=== PATIENT | male | born 1960 | race African-American/Black ===

== ENCOUNTER 2021-02-06 11:47 | Emergency (ER) | payer OTHER, SELFPAY ==
--- NOTE | ~2021-02-06 | XR_ITS ---
XR ankle LT min 3V DATE: 02/06/2021 12:20 INDICATION: Left ankle pain. Twisted ankle one week ago. TECHNIQUE: 4 views COMPARISON: None FINDINGS: There is lateral soft tissue swelling. No fracture or dislocation of the left ankle or disruption of the ankle mortise is detected. There is a small chronic accessory ossicle at the tip of the lateral malleolus. Mild plantar calcaneal enthesopathy without associated erosive change or periostitis. IMPRESSION: Lateral soft tissue swelling; no recent fracture or dislocation Plantar calcaneal enthesopathy Reviewed, dictated and finalized at location A.
[2021-02-06 11:58] VITALS: BP 112/80; PULSE 72; RESP 18; TEMP 36.6; O2SAT 100
--- NOTE | 2021-02-06 13:14 | ED.LOWEXIN ---
HPI - Extremity Injury (Lower) General Chief Complaint: Extremity Injury, Lower Stated Complaint: Left Ankle Pain Time Seen by Provider: 02/06/21 13:00 Source: patient and RN notes reviewed Mode of arrival: ambulatory Limitations: no limitations History of Present Illness HPI Narrative: 60-year-old male presents concern with left ankle pain for 1 week. Reports 1 week ago he rolled his ankle causing swelling, bruising, pain. Reports he has been walking on it but has been painful. Reports he has been using Tylenol, ice, ankle brace with little relief. He denies warmth, redness, open skin. Denies decreased sensation, strength in the joint. MD complaint: ankle injury Review of Systems Review of Systems: CONSTITUTIONAL: Denies malaise, chills, sweats, or fever. SKIN: Denies redness, warmth, open skin MUSCULOSKELETAL: Reports left ankle pain, bruising, and swelling NEUROLOGIC: Denies numbness, weakness All systems reviewed & are unremarkable except as noted in HPI and below PMFSH Comments At time of signature, agree with nursing past medical, surgical, social and family history. There is no relevant family history pertinent to the presenting complaint Exam Narrative: GENERAL: Well-appearing, well-nourished, and in no acute distress. HEAD: Normocephalic, atraumatic. EYES: PERRLA, conjunctivae clear NECK: Supple. CHEST: Speaks in full sentences. No respiratory distress. HEART: Regular rate and rhythm. Normal and equal peripheral pulses. EXTREMITIES: Left ankle, foot, digits have normal strength and sensation. Moderate edema, mild ecchymosis. 5/5 strength with digit flexion and extension. Normal sensation with sensitivity to light touch and pain. Lateral ankle tenderness. No open wounds, no skin tenting, no devitalized tissue or atrophy, no trophic changes, no obvious deformity, alignment normal, nearby joints and structures intact. Distal pulses palpable and equal bilaterally, skin warm, dry, pink. Capillary refill less than 3 seconds. SKIN: Warm, dry, no rash. NEURO: Alert and oriented x3. PSYCH: Normal mood and affect Course Course Emergency Course: Patient is aware of diagnosis, understands and agrees to treatment plan. Anticipatory guidance given. Patient agrees to follow-up as directed and is aware of reasons to seek care at the emergency department. Portions of this record may have been created with voice recognition software Vital Signs Vital signs: Vital Signs Temperature 97.9 F 02/06/21 11:58 Pulse Rate 72 02/06/21 11:58 Respiratory Rate 18 02/06/21 11:58 Blood Pressure 112/80 02/06/21 11:58 Pulse Oximetry 100 02/06/21 11:58 Temperature 97.9 F 02/06/21 11:58 Pulse Rate 72 02/06/21 11:58 Respiratory Rate 18 02/06/21 11:58 Blood Pressure 112/80 02/06/21 11:58 Pulse Oximetry 100 02/06/21 11:58 Reviewed. MDM - Extremity Injury (Lower) MDM Narrative Medical decision making narrative: Patients injury and pain is consistent with musculoskeletal etiology. No signs of neurological or vascular compromise on exam. Compartments and tissues are soft without signs of compartment syndrome. Pain is felt appropriate for further evaluation on an outpatient basis. Critical Care Time Critical Care Time Critical Care Time: No Discharge Plan Discharge Clinical Impression: Ankle sprain and strain Patient Disposition: Home, Self-Care Condition: Stable Instructions: Ankle Sprain (ED) Additional Instructions: Avoid activities that cause pain until the pain subsides. Ice to the area 20-30 minutes 4-6 times a day Elevate above heart Elastic wrap or orthopedic splint as directed for comfort for the next 5-7 days Crutches as directed if needed Tylenol for lesser pain Ibuprofen regularly for the next 2-3 days for the inflammation Follow up with your primary care provider if the condition is not improving within 1 week. If the condition worsens with numbness, tingling, decrease sens
== END 2021-02-06 13:20 | disposition home or self-care (01) ==
PROVIDERS: Emergency Provider Nurse Practitioner; PCP Emergency Medicine
DX: S93.402A Sprain of unspecified ligament of left ankle, initial encounter (principal); S96.912A Strain of unspecified muscle and tendon at ankle and foot level, left foot, initial encounter; X50.9XXA Other and unspecified overexertion or strenuous movements or postures, initial encounter
CPT/HCPCS: 73610; 99213; G0463

== ENCOUNTER 2021-04-11 10:50 | Outpatient (CLI) | payer OTHER, SELFPAY ==
[2021-04-11 11:30] LABS: Basophils Percent Auto 0.5 % (0.2-1.2); Eosinophils Absolute Auto 0.1 K/mm3 (0-0.3); Eosinophils Percent Auto 0.9 % (0-4.4); Hematocrit 38.9 % (42.0-52.0); Hemoglobin 12.8 g/dL (14.0-18.0); Immature Granulocyte Absolute 0.02 K/mm3 (0.00-0.031); Immature Granulocyte Percent A 0.4 % (0-0.5); Immature Reticulocyte Fraction 12.9 % (3.0-15.9); Lymphocytes Percent Auto 10.7 % (18.3-44.2); Mean Corpuscular HGB Conc 32.9 g/dl (32-36); Mean Corpuscular Hemoglobin 32.2 pg (26-34); Mean Platelet Volume 9.6 fl (7.4-10.4); Monocytes Absolute Auto 0.8 K/mm3 (0.1-0.6); Monocytes Percent Auto 14.2 % (2.6-8.5); Neutrophils Absolute Auto 4.1 K/mm3 (1.3-6.7); Neutrophils Percent Auto 73.3 % (45.5-73.1); Platelet Count Result 225 k/mm3 (150-375); Red Blood Count 3.97 M/mm3 (4.6-6.20); Red Cell Distribution Width 12.3 % (11.5-14.5); Reticulocyte Hemoglobin Conten 36.8 pg (28.2-35.7); Reticulocyte Percent 1.49 % (0.7-4.3); Reticulocytes Absolute 0.06 B/L (32.2-175.7); White Blood Count 5.6 K/mm3 (4.5-10.0)
[2021-04-11 12:36] LABS: Alanine Aminotransferase 16 U/L (4-50); Albumin Level 4.6 g/dL (3.5-5.1); Alkaline Phosphatase 118 U/L (38-126); Anion Gap 8 mmol/L (8-16); Aspartate Amino Transferase 37 U/L (17-59); Bilirubin,Total 0.5 mg/dL (0.2-1.3); Blood Urea Nitrogen 10 mg/dL (9-20); Calcium 9.5 mg/dL (8.4-10.2); Carbon Dioxide 30 mmol/L (22-30); Chloride 102 mmol/L (98-107); Estimated Glomerular Filt Rate > 60; Glucose 97 mg/dL (65-110); Lactate Dehydrogenase 467 U/L (313-618); Potassium 3.7 mmol/L (3.4-5.0); Sodium 140 mmol/L (137-145)
[2021-04-11 12:54] LABS: Iron 50 ug/dL (49-181)
[2021-04-11 13:04] LABS: Percent Iron Saturation 17 % (20-50)
[2021-04-11 13:34] LABS: Folic Acid 13.1 ng/mL (2.76->20)
[2021-04-16 08:17] LABS: Hematocrit 38.6 % (38.5-50.0); Hemoglobin 12.6 g/dL (13.2-17.1); RDW 13.2 % (11.0-15.0); Red Blood Cell Count 3.94 Mill/uL (4.20-5.80)
== END 2021-04-11 10:51 | disposition home or self-care (01) ==
PROVIDERS: PCP Emergency Medicine; Visit Provider Internal Medicine Hematology & Oncology
DX: D64.9 Anemia, unspecified (principal)
CPT/HCPCS: 36415; 80053; 82607; 82728; 82746; 83021; 83540; 83550; 83615; 85025; 85046

== ENCOUNTER 2021-11-20 07:52 | Outpatient (CLI) | payer OTHER, SELFPAY ==
--- NOTE | ~2021-11-20 | US_ITS ---
EXAMINATION: US right upper quadrant DATE: 11/20/2021 08:53 INDICATION: Elevated alkaline phosphatase level TECHNIQUE: Multiple grayscale and Doppler ultrasound images of the abdomen were obtained. COMPARISON: None FINDINGS: The pancreatic head and body are normal in appearance. The pancreatic tail is not visualized. Liver has normal echogenicity and contour, with a smooth surface. Small wedge-shaped region of subtly more echogenic focal hepatic steatosis along the ligamentum teres. No other hepatic lesions identified. No intrahepatic biliary duct dilation suspected. Portal venous flow was seen in the hepatopetal, normal direction and has normal Doppler waveform. The gallbladder is normal in appearance. There is no cho lelithiasis. The common bile duct measures 3 mm, which is normal.Visualized portion of the inferior v ksenia cava is normal. Visualized portion of the right kidney demonstrates normal contour and echogenici ty with no hydronephrosis. IMPRESSION: 1. Normal right upper quadrant ultrasound. Reviewed, dictated and finalized at location B.
== END 2021-11-20 07:53 | disposition home or self-care (01) ==
LOC: ANHIMG 07:56
PROVIDERS: PCP Emergency Medicine; Visit Provider Internal Medicine Gastroenterology
DX: R94.5 Abnormal results of liver function studies (principal)
CPT/HCPCS: 76705